=== PATIENT | female | born 1990 | race African-American/Black ===

== ENCOUNTER 2023-01-14 20:47 | Emergency (ER) | payer MEDICAID ==
[~2023-01-14] VITALS: Ht 172.7 cm; Wt 175.0 kg
[2023-01-14 21:09] VITALS: BP 116/73; PULSE 76; RESP 20; TEMP 98.4
== END 2023-01-14 23:21 | disposition home or self-care (01) ==
LOC: EMS 20:48
DX: S93.504A Unspecified sprain of right lesser toe(s), initial encounter (principal); F17.210 Nicotine dependence, cigarettes, uncomplicated; F12.90 Cannabis use, unspecified, uncomplicated; Z98.890 Other specified postprocedural states; X58.XXXA Exposure to other specified factors, initial encounter; Y93.89 Activity, other specified; Y92.89 Other specified places as the place of occurrence of the external cause; Y99.8 Other external cause status
CPT/HCPCS: 99283

== ENCOUNTER 2024-02-17 19:54 | Emergency (ER) | payer MEDICAID ==
[~2024-02-17] VITALS: Ht 172.7 cm; Wt 90.0 kg
[2024-02-17 21:24] VITALS: TEMP 97.9
[2024-02-17] MEDS ORDERED: OxyCODONE HCL/ACETAMINOPHEN 5-325 MG TABLET PO ONE (22:45)
[2024-02-17] MEDS ORDERED: IBUP-1492 PO (22:51)
[2024-02-17 23:18] VITALS: BP 129/63; PULSE 79; RESP 16; O2SAT 96
== END 2024-02-18 00:20 | disposition home or self-care (01) ==
LOC: EMS 19:54
DX: S92.512A Displaced fracture of proximal phalanx of left lesser toe(s), initial encounter for closed fracture (principal); F17.210 Nicotine dependence, cigarettes, uncomplicated; F12.90 Cannabis use, unspecified, uncomplicated; W22.8XXA Striking against or struck by other objects, initial encounter; Y93.89 Activity, other specified; Y92.89 Other specified places as the place of occurrence of the external cause; Y99.8 Other external cause status
CPT/HCPCS: 99283